=== PATIENT | male | born 1950 | race Asian ===

== ENCOUNTER → 2022-01-24 12:56 | Outpatient (CLI) | payer OTHER, SELFPAY ==
--- NOTE | 2022-01-24 | DI.RAD.S_ITS ---
PROCEDURE: XR CHEST 2V INDICATIONS: Shortness of breath TECHNIQUE: 2 views of the chest were acquired. COMPARISON: None. FINDINGS: Surgical changes and devices: None. Lungs and pleura: No consolidation pleural effusions or pneumothorax. Mediastinum: Ectasia of the ascending thoracic aorta. Heart size is normal. Bones and chest wall: No suspicious bony abnormalities. Soft tissues appear unremarkable. IMPRESSION: 1. Ectasia of the ascending thoracic aorta. Aneurysm cannot be excluded. Consider CTA chest imaging for further evaluation as clinically warranted. Dictated by: Spike Tracy M.D. on 01/24/2022 at 13:18 Approved by: Spike Tracy M.D. on 01/24/2022 at 13:20
== END ==
PROVIDERS: PCP Physician Assistant; Referring Provider Internal Medicine; Visit Provider Internal Medicine
DX: I77.810 Thoracic aortic ectasia (principal); R06.02 Shortness of breath
CPT/HCPCS: 71046

== ENCOUNTER → 2022-04-22 08:40 | Outpatient (CLI) | payer MEDICARE, SELFPAY ==
--- NOTE | 2022-04-22 08:57 | DI.CT.S_ITS ---
PROCEDURE: CT ANGIO CHEST INDICATIONS: Aortic ectasia, unspecified site TECHNIQUE: After the administration of intravenous contrast, 2 mm thick sections acquired from the pulmonary apices to the posterior costophrenic angles. 3-dimensional maximum intensity projection (MIP) coronal and sagittal reformats were then acquired through the thorax. For radiation dose reduction, the following was used: automated exposure control, adjustment of mA and/or kV according to patient size. COMPARISON: [facility], CR, XR CHEST 2V, 01/24/2022, 12:59. FINDINGS: Image quality: Excellent. Pulmonary arteries: Pulmonary arteries are normal in size, and demonstrate no intraluminal filling defects to suggest central pulmonary embolism. Lungs and pleura: There is a spiculated mass in the left apex measuring 4.3 x 3.0 x 1.9 cm. Mediastinum: Heart size is normal, without pericardial effusion. The coronary arteries have atherosclerotic calcifications. No mediastinal or hilar adenopathy. The aorta has atherosclerotic calcifications. The ascending aorta is aneurysmally dilated measuring 4.3 cm. There is a saccular aneurysm of the arch extending laterally which measures 2.0 x 1.6 cm. This lies adjacent to an enlarged lymph node in the left upper hilum measuring 4.4 x 5.2 x 4.4 cm. The esophagus is patulous and contains fluid in the midportion. Bones and chest wall: No suspicious bony lesions. Ribs and thoracic spine appear intact throughout. Thyroid gland is normal. The right nipple is enlarged measuring 1.9 cm. No axillary or supraclavicular adenopathy. Abdomen: Visualized upper abdominal solid organs appear normal in the early arterial phase of enhancement. The gallbladder contains gallstones with no evidence of cholecystitis. The pancreas has calcifications and is atrophic. IMPRESSION: 1. Spiculated mass in the left apex measuring 4.3 x 3.0 x 1.9 cm. 2. Enlarged left upper hilar lymph node measuring 4.5 cm. 3. Saccular aneurysm of the aortic arch, which could be due to invasion of neoplasm from adjacent enlarged lymph node. 4. 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 5. Pancreatic atrophy and calcifications. 6. Patulous esophagus. 7. Cholelithiasis without evidence of cholecystitis. Attempts to contact Dr. Coyle by telephone were unsuccessful and messages were left. A copy of this report will be faxed. Dictated by: Matt Nagel M.D. on 04/22/2022 at 10:50 Approved by: Matt Nagel M.D. on 04/22/2022 at 11:35
[2022-04-22 09:40] LABS: BUN Creatinine Ratio 17.2 (6-22); Blood Urea Nitrogen 23 mg/dL (9-20); Calcium 9.3 mg/dL (8.4-10.2); Carbon Dioxide 28 mmol/L (22-32); Chloride 104 mmol/L (98-107); Estimated Glomerular Filt Rate 57 mL/min (>60); Glucose 160 mg/dL (80-110); HEMOLYSIS < 15 (0-50); Potassium 3.8 mmol/L (3.4-5.1); Sodium 138 mmol/L (137-145)
== END ==
PROVIDERS: PCP Physician Assistant; Referring Provider Internal Medicine; Visit Provider Internal Medicine
DX: I71.2 Thoracic aortic aneurysm, without rupture (principal); R91.8 Other nonspecific abnormal finding of lung field; R59.0 Localized enlarged lymph nodes; K86.89 Other specified diseases of pancreas; K22.9 Disease of esophagus, unspecified; K80.20 Calculus of gallbladder without cholecystitis without obstruction
CPT/HCPCS: 36415; 71275; 80048; Q9967